=== PATIENT | male | born 1995 | race Caucasian/White ===

== ENCOUNTER 2021-02-07 07:55 | Emergency (ER) | payer BC ==
--- NOTE | 2021-02-07 08:26 | EDM.PDOC ---
ED HPI GENERAL MEDICAL PROBLEM - General Chief Complaint: Chest Pain Stated Complaint: CHEST PAIN Time Seen by Provider: 02/07/21 08:21 Source of Information: Reports: Patient, RN Notes Reviewed History Limitations: Reports: No Limitations - History of Present Illness INITIAL COMMENTS - FREE TEXT/NARRATIVE: 25-year-old gentleman presents emergency department day complaint of chest pain, he states about an hour and half prior to presentation emergency department sudden onset of chest pain hard to breathe did have some numbness and tingling down his left arm. No known heart disease in the family. No nausea or vomiting no diaphoresis - Related Data Allergies Allergy/AdvReac Type Severity Reaction Status Date / Time amoxicillin Allergy Hives Verified 02/07/21 08:16 Penicillins Allergy Hives Verified 02/07/21 08:16 Home Meds: Home Meds NK [No Known Home Meds] 02/07/21 [History] Past Medical History - Past Health History Medical/Surgical History: Denies Medical/Surgical History - Infectious Disease History Infectious Disease History: Reports: Chicken Pox Social & Family History - Tobacco Use Tobacco Use Status *Q: Light Tobacco User Years of Tobacco use: 10 Packs/Tins Daily: 0 - Caffeine Use Caffeine Use: Reports: Soda - Alcohol Use Number of Drinks Per Day: 2 - Recreational Drug Use Recreational Drug Use: No ED ROS GENERAL - Review of Systems Review Of Systems: See Below Constitutional: Reports: No Symptoms Respiratory: Reports: Shortness of Breath Cardiovascular: Reports: Chest Pain GI/Abdominal: Reports: No Symptoms Neurological: Reports: Numbness, Tingling ED EXAM, GENERAL - Physical Exam Exam: See Below Exam Limited By: No Limitations General Appearance: Alert, WD/WN, No Apparent Distress Respiratory/Chest: No Respiratory Distress, Lungs Clear, Normal Breath Sounds, No Accessory Muscle Use, Chest Non-Tender Cardiovascular: Regular Rate, Rhythm, No Murmur GI/Abdominal: Soft, Non-Tender #1 Interpretation EKG Date: 02/07/21 Time: 08:28 Rhythm: NSR Blanca: Normal P-Wave: Present QRS: Normal ST-T: Normal QT: Normal Comparison: NA - No Prior EKG Course - Vital Signs Last Recorded V/S: Last Vital Signs Temp 98.2 F 02/07/21 08:19 Pulse 93 02/07/21 08:19 Resp 17 02/07/21 09:03 BP 144/92 H 06/21/21 09:03 Pulse Ox 98 02/07/21 09:03 - Orders/Labs/Meds Orders: Active Orders 24 hr Category Date Time Status Cardiac Monitoring [RC] .As Directed Care 02/07/21 08:24 Active EKG Documentation Completion [RC] ASDIRECTED Care 02/07/21 08:25 Active Chest 2V [CR] Stat Exams 02/07/21 08:25 Taken EKG 12 Lead [EK] Stat Ther 02/07/21 08:25 Ordered Labs: Laboratory Tests 02/07/21 02/07/21 Range/Units 08:35 08:35 WBC 6.6 (4.5-11.0) K/uL RBC 4.76 (4.30-5.90) M/uL Hgb 14.3 (12.0-15.0) g/dL Hct 42.0 (40.0-54.0) % MCV 88 (80-98) fL MCH 30 (27-31) pg MCHC 34 (32-36) % Plt Count 213 (150-400) K/uL Neut % (Auto) 77.0 H (36-66) % Lymph % (Auto) 15.3 L (24-44) % [place] % (Auto) 6.3 H (2-6) % Eos % (Auto) 1.1 L (2-4) % Baso % (Auto) 0.3 (0-1) % Sodium 141 (140-148) mmol/L Potassium 3.9 (3.6-5.2) mmol/L Chloride 103 (100-108) mmol/L Carbon Dioxide 27 (21-32) mmol/L Anion Gap 10.9 (5.0-14.0) mmol/L BUN 15 (7-18) mg/dL Creatinine 0.8 (0.8-1.3) mg/dL Est Cr Clr Drug Dosing 126.27 mL/min Estimated GFR (MDRD) > 60 (>60) Glucose 126 H (74-106) mg/dL Calcium 8.8 (8.5-10.1) mg/dL Troponin I < 0.017 (0.000-0.056) ng/mL Departure - Departure Time of Disposition: 09:31 Disposition: Home, Self-Care 01 Condition: Fair Clinical Impression: Panic attack Instructions: Panic Attack, [id number] Referrals: PCP,None [Primary Care Provider] - Forms: ED Department Discharge Additional Instructions: Please followup with your primary care provider in 3-5 days if not better, please call return to the emergency department with worsening of symptoms. Sepsis Event Note (ED) - Evaluation Sepsis Screening Result: No Definite Risk - Focused Exam Vital Signs: Vital Signs Temp Pulse Resp BP Pulse Ox 02/07/21 09:03 17 144/92 H 98 02/07/21 08:19 98.2 F 93 19 148/93 H 99 02/07/21 08:16 98.2 F 93 19 148/93 H 99 - My Orders Last 24 Hours: My Active Orders 02/07/21 08:24 Cardiac Monitoring [RC] .As Directed 02/07/21 08:25 EKG Documentation Completion [RC] ASDIRECTED Chest 2V [CR] Stat EKG 12 Lead [EK] Stat - Assessment/Plan Last 24 Hours: My Active Orders 02/07/21 08:24 Cardiac Monitoring [RC] .As Directed 02/07/21 08:25 EKG Documentation Completion [RC] ASDIRECTED Chest 2V [CR] Stat EKG 12 Lead [EK] Stat Plan: Assessment Acuity = acute Site and laterality = panic attack Etiology = underlying anxiety Manifestations = none Location of injury = Home Lab values = CBC, BMP, troponin all within normal limits EKG demonstrates sinus rhythm there is no ST elevations or depressions chest x-ray I did review films myself I cannot appreciate any acute process, the official read from radiology is pending Plan , All of his symptoms resolved while he was in the emergency department I talked to him about his anxiety and he admits he is under a lot of stress follow-up with primary care 3 to 5 days if not better This note was dictated using [employer] recognition software please call with any questions on syntax or grammar.
--- NOTE | 2021-02-07 10:19 | CR ---
CHEST: 2 view CLINICAL HISTORY:Chest pain COMPARISON:None FINDINGS: The heart size, pulmonary vascularity and hilar structures are normal. No infiltrate effusion or pneumothorax is seen. IMPRESSION: No acute cardiopulmonary process.
== END 2021-02-07 09:39 | disposition home or self-care (01) ==
LOC: JP.ED 07:55
DX: F41.0 Panic disorder [episodic paroxysmal anxiety] (principal); Z72.0 Tobacco use; Z88.0 Allergy status to penicillin
CPT/HCPCS: 36415; 71046; 71046-26; 80048; 84484; 85025; 93005; 93010; 99283; 99285-25